=== PATIENT | male | born 1930 | race Caucasian/White ===

== ENCOUNTER 2017-07-23 13:40 | Emergency (ER) | payer OTHER ==
[~2017-07-23] VITALS: Ht 167.6 cm; Wt 95.3 kg
[2017-07-23] MEDS ORDERED: IV NORMAL SALINE 500 ML BAG IV ONE (14:00)
--- NOTE | 2017-07-23 14:10 | NUR ---
PT IS IN ROOM #2A. DR AGUILAR EVALUATED THE PT.
[2017-07-23 14:21] LABS: BASOPHILS % (AUTO) 0.3 % (0.0-2.0); EOSINOPHILS # (AUTO) 0.2 K/uL (0.0-0.7); EOSINOPHILS % (AUTO) 3.3 % (0.0-7.0); HEMATOCRIT 30.1 % (36.7-47.1); HEMOGLOBIN 9.9 g/dL (12.5-16.3); LYMPHOCYTES # (AUTO) 2.8 K/uL (20.0-40.0); LYMPHOCYTES % (AUTO) 38.1 % (20.5-51.5); MEAN CORPUSCULAR HEMOGLOBIN 27.1 uug (23.8-33.4); MEAN CORPUSCULAR HGB CONC 33 g/dL (32.5-36.3); MEAN CORPUSCULAR VOLUME 82.4 fL (73.0-96.2); MONOCYTES # (AUTO) 0.8 K/uL (2.0-10.0); MONOCYTES % (AUTO) 10.3 % (0.0-11.0); NEUTROPHILS # (AUTO) 3.6 K/uL (1.8-8.9); PLATELET COUNT (AUTO) 148 K/uL (152-348); RED BLOOD CELL COUNT(AUTO) 3.65 MIL/uL (4.06-5.63); WHITE BLOOD COUNT (AUTO) 7.4 K/uL (3.6-10.2)
[2017-07-23 14:31] LABS: CARBON DIOXIDE 25 mmol/L (21-32); CHLORIDE 103 mmol/L (98-107); CREATININE 1.3 mg/dL (0.6-1.3); GLUCOSE 104 mg/dL (74-106); POTASSIUM 4.3 mmol/L (3.5-5.1); UREA NITROGEN, BLOOD 26 mg/dL (7-18)
[2017-07-23 14:47] LABS: BILIRUBIN,DIRECT 0.1 mg/dL (0.0-0.2); BILIRUBIN,TOTAL 0.3 mg/dL (0.2-1.0)
[2017-07-23 14:48] LABS: ALANINE AMINOTRANSFERASE 24 U/L (16-63); ALKALINE PHOSPHATASE 50 U/L (50-136); ASPARTATE AMINOTRANSFERASE 14 U/L (15-37); TOTAL PROTEIN, SERUM 7.3 g/dL (6.4-8.2)
--- NOTE | 2017-07-23 15:33 | NUR ---
DR AGUILAR SPOKE WITH [facility] DR WEBER WILL ADMIT PATIENT TO [facility]SF[facility].
--- NOTE | 2017-07-23 16:00 | NUR ---
PT SON, AIYANA CALLED , PHONE ANGIE, ,
[2017-07-23] MEDS ORDERED: MORPHINE SULFATE 2 MG/1 ML DISP.SYRIN IV ONE (17:30)
[2017-07-23] MEDS ORDERED: MORPHINE SULFATE 2 MG/1 ML DISP.SYRIN ONE (17:36)
[2017-07-23] MEDS ORDERED: LORAZEPAM 2 MG/1 ML VIAL IV ONE (18:00)
--- NOTE | 2017-07-23 18:18 | NUR ---
[facility] MANAGER [employer] NICKY CALLED WITH TRANSFER INFORMATION. PT IS GOING TO GO TO [facility], ROOM 5101. ADMITTING MD IS DR. ESCAMILLA. REPORT WAS ([phone]) TO AREN TENORIO.
[2017-07-23] MEDS ORDERED: LORAZEPAM 2 MG/1 ML VIAL ONE (18:25)
--- NOTE | 2017-07-23 19:19 | NUR ---
PT WAS TRANSFERED TO [facility]IA [facility]. REPORT WAS GIVEN TO AMBULANCE RN.
== END 2017-07-23 19:21 | disposition short-term general hospital (02) ==
LOC: ER 13:40
DX: R07.9 Chest pain, unspecified (principal); Z88.8 Allergy status to other drugs, medicaments and biological substances
CPT/HCPCS: 36415; 70030-TC; 71045; 85025; 85730; 93005; A4663; J2060; J2270; J7030